=== PATIENT | female | born 1990 | race Caucasian/White ===

== ENCOUNTER 2023-01-01 01:31 | Inpatient (IN) | payer OTHER ==
[~2023-01-01] VITALS: Ht 162.6 cm; Wt 77.6 kg
[2023-01-01] MEDS ORDERED: ONDANSETRON 4 MG/2 ML VIAL IVP PRN ×2 (02:25→18:45)
[2023-01-01] MEDS ORDERED: LACTATED RINGERS 1,000 ML IV SCH ×2 (02:25→18:45)
[2023-01-01] MEDS ORDERED: OXYTOCIN 20 UNITS in LACTATED RINGERS 1,000 ML IV SCH ×2 (02:25→18:45)
[2023-01-01] MEDS ORDERED: METHYLERGONOVINE 0.2 MG/ML AMP IM PRN ×3 (02:25→18:45)
[2023-01-01] MEDS ORDERED: CARBOPROST 250 MCG/ML AMP IM PRN (02:25)
[2023-01-01] MEDS ORDERED: AMPICILLIN 2,000 MG in NACL 0.9% MINI-BAG PLUS 100 ML IV ONE (02:25)
[2023-01-01] MEDS ORDERED: MORPHINE SULFATE 5 MG/ML VIAL IVP PRN ×2 (02:25→18:45)
[2023-01-01] MEDS ORDERED: LIDOCAINE 1% 500 MG/ 50 ML VIAL INJ SCH (02:25)
[2023-01-01] MEDS ORDERED: AMPICILLIN 2,000 MG in NACL 0.9% MINI-BAG PLUS 100 ML IV SCH (02:30)
[2023-01-01] MEDS ORDERED: AMPICILLIN 2,000 MG VIAL ONE (02:43)
[2023-01-01] MEDS ORDERED: LIDOCAINE 1% 500 MG/50 ML VIAL ONE (02:44)
[2023-01-01] MEDS ORDERED: OXYTOCIN 20 UNITS/LR PREMIX 1,000 ML IV ONE (02:51)
[2023-01-01 03:17] LABS: PROTHROMBIN TIME 8.6 secs (10.8-13.4)
[2023-01-01] MEDS ORDERED: SIMETHICONE 80 MG TAB.CHEW PO PRN (03:20)
[2023-01-01] MEDS ORDERED: BENZOCAINE/MENTHOL 20%-0.5% 60 GM CAN TP PRN (03:20)
[2023-01-01] MEDS ORDERED: DOCUSATE SODIUM 100 MG GELCAP PO PRN (03:20)
[2023-01-01] MEDS ORDERED: bisacodyL 5 MG TABEC PO PRN (03:20)
[2023-01-01] MEDS ORDERED: IBUPROFEN 800 MG TAB PO PRN ×2 (03:20→06:35)
[2023-01-01] MEDS ORDERED: OXYTOCIN 10 UNITS/ML VIAL IM PRN (03:20)
[2023-01-01] MEDS ORDERED: HYDROcodone/APAP 5/325 MG 1 TAB TAB PO PRN ×2 (03:20)
[2023-01-01] MEDS ORDERED: METHYLERGONOVINE 0.2 MG TAB PO PRN (03:20)
[2023-01-01] MEDS ORDERED: IBUPROFEN 600 MG TAB PO PRN (03:20)
[2023-01-01] MEDS ORDERED: MEASLES, MUMPS, AND RUBELLA 1 VIAL SQVAC ONE (03:20)
[2023-01-01 03:23] VITALS: BP 143/91
[2023-01-01 03:24] LABS: ALBUMIN 2.8 g/dL (3.4-5.0); ANION GAP 15.4 (8-16); CARBON DIOXIDE 22.9 mmol/L (21-32); CREATININE 0.9 mg/dL (0.6-1.3); POTASSIUM 3.3 mmol/L (3.5-5.1); TOTAL BILIRUBIN 0.4 mg/dL (0.0-1.0)
[2023-01-01 06:49] LABS: BASOPHILS # (AUTO) 0.1 K/uL (0.00-0.22); BASOPHILS % (AUTO) 0.8 % (0.0-2.0); EOSINOPHILS % (AUTO) 0.1 % (0.0-4.0); HEMATOCRIT 34.6 % (36-48); HEMOGLOBIN 10.8 g/dL (12.0-16.0); LYMPHOCYTES # (AUTO) 2.2 K/uL (2.5-16.5); LYMPHOCYTES % (AUTO) 21.2 % (20.5-51.1); MEAN CORPUSCULAR HEMOGLOBIN 25 pg (27-31); MEAN CORPUSCULAR HGB CONC 31 g/dL (33-37); MEAN CORPUSCULAR VOLUME 78.1 fL (80-94); MONOCYTES # (AUTO) 0.6 K/uL (0.8-1.0); MONOCYTES % (AUTO) 6.2 % (1.7-9.3); NEUTROPHILS # (AUTO) 7.4 K/uL (1.8-7.7); NEUTROPHILS % (AUTO) 71.7 % (42.2-75.2); PLATELET COUNT (AUTO) 271 K/uL (140-450); RED BLOOD CELL COUNT(AUTO) 4.42 MIL/uL (4.20-5.40); RED CELL DISTRIBUTION WIDTH 18.5 % (11.6-13.7); WHITE BLOOD COUNT (AUTO) 10.3 K/uL (4.8-10.8)
[2023-01-01 08:44] LABS: APPEARANCE,URINE CLEAR (CLEAR); BILIRUBIN,URINE NEGATIVE (NEGATIVE); BLOOD, URINE 3+ (NEGATIVE); COLOR,URINE YELLOW (YELLOW); LEUKOCYTE ESTERASE ,URINE NEGATIVE (NEGATIVE); NITRITE, URINE NEGATIVE (NEGATIVE); UGLUCOSE NEGATIVE (NEGATIVE)
--- NOTE | 2023-01-01 08:58 | NUR ---
PATIENT HAS BEEN SCREENED AND CATEGORIZED LOW NUTRITION RISK. PATIENT WILL BE SEEN WITHIN 7 DAYS OF ADMISSION. 01/08/23 REVIEWED BY [address]O [address]
[2023-01-01 10:17] LABS: RBC,URINE 80-100 /HPF (0-5); WBC,URINE 0-5 /HPF (0-5)
[2023-01-01 10:18] LABS: BARBITURATE, URINE NEGATIVE ng/ml (NEG <=200); BENZODIAZEPINE, URINE NEGATIVE ng/mL (NEG <=200); CANNABINOID, URINE NEGATIVE ng/mL (NEG <=50); COCAINE, URINE NEGATIVE ng/mL (NEG <=300); OPIATE, URINE NEGATIVE ng/mL (NEG <=2000); PHENCYCLIDINE SCREEN,URINE NEGATIVE ng/mL (NEG <=25)
[2023-01-02 08:14] LABS: HEMATOCRIT 31.1 % (36-48); HEMOGLOBIN 9.9 g/dL (12.0-16.0)
== END 2023-01-02 15:25 | disposition home or self-care (01) | DRG 807 ==
LOC: MLD 01:31 → MFCC 05:04
PROVIDERS: ADMIT Obstetrics & Gynecology; ATTEND Obstetrics & Gynecology
PROC: 10E0XZZ Delivery of Products of Conception, External Approach (ICD-10-PCS; principal; 2023-01-01)
PROC: 3E0234Z Introduction of Serum, Toxoid and Vaccine into Muscle, Percutaneous Approach (ICD-10-PCS; 2023-01-01)
PROC: 3E033VJ Introduction of Other Hormone into Peripheral Vein, Percutaneous Approach (ICD-10-PCS; 2023-01-01)
DX: O80 Encounter for full-term uncomplicated delivery (principal); Z37.0 Single live birth; Z3A.38 38 weeks gestation of pregnancy; Z20.822 Contact with and (suspected) exposure to COVID-19
CPT/HCPCS: 36415; 59409; 80053; 80305; 81001; 85018; 85025; 85610; 85730; 86592; 86762; 86886; 86900; 86901; 87340; 87653-90; J0290; J2001; J2590; J7120